=== PATIENT | female | born 1950 | race Caucasian/White ===

== ENCOUNTER 2021-08-17 06:31 | Observation (INO) ==
--- NOTE | 2021-08-15 09:29 | Anesthesiology Consultation ---
Date of Service August 15, 2021 Assessment & Plan (1) Encounter for pre-operative examination: - limb restriction: right arm. - COVID screening: Per para machine operator on 08/14/2021: Travel screen negative, no known COVID-19 positive contacts or current COVID-19 related symptoms in past 2 weeks. Surgeon arranging preop COVID testing, scheduled 08/15/2021. Awaiting results. Chart Review Chart Review: Acceptable Risk for Surgery and Patient NOT seen in Pre Admission Testing History Surgery Operation Date: 08/17/21 08:50 Proposed Procedures p Left Gluteus Medius and Minus Tendon Repair - Wilian Avendano MD Height/Weight Height: 5 ft 2 in Weight: 62.596 kg Allergies Allergy/AdvReac Type Severity Reaction Status Date / Time Penicillins Allergy Intermediate Hives Verified 08/14/21 16:46 cephalexin Allergy Unknown Unknown Unverified 08/14/21 16:46 meloxicam Allergy Unknown Unknown Unverified 08/14/21 16:46 Sulfa (Sulfonamide Allergy Unknown Unknown Unverified 08/14/21 16:46 Antibiotics) Medications Home Medications Medication Instructions Recorded Confirmed Last Taken spacer tube #1 ea 10/28/20 12/21/20 Unknown naproxen sodium 220 mg tablet 220 mg PO DAILY PRN 08/14/21 08/14/21 Unknown (Aleve) Past Medical History Medical History (Updated 08/15/21 @ 09:28 by Esther Bruno PA-C) Anxiety situational anxiety Breast cancer 2002 -- right breast Bursitis of left hip CKD (chronic kidney disease) stage 3, GFR 30-59 ml/min Hyperlipidemia no medications Lymphedema of arm hx--- right arm Osteoarthritis Past Family History Family History Brother Cancer leukemia ( from the cancer) Grandmother (Maternal) Cancer uterine Other No family history of adverse response to anesthesia Past Surgical History Surgical History History of colonoscopy S/P appendectomy S/P arthroscopy of right shoulder S/P lumpectomy, right breast with lymph node removal Social History Smoking Status: Former smoker Do You Dip or Chew Tobacco: No Hx Alcohol Use: Yes Alcohol type: wine alcohol intake frequency: a few times a week Hx Substance Use: No substance use type: does not use Lab Results Anesthesia Preop Results Results Anesthesia Widget: WBC 8.62 K/uL (4.8-10.8) 08/08/21 Hgb 13.3 g/dL (12.0-16.0) 08/08/21 Hct 40.9 % (37-47) 08/08/21 Plt 238 K/uL (130-400) 08/08/21 Na 137 mmol/L (136-145) 08/08/21 K 4.0 mmol/L (3.5-5.1) 08/08/21 Cl 103 mmol/L (98-107) 08/08/21 CO2 26 mmol/L (21-32) 08/08/21 BUN 20 mg/dl (6-23) 08/08/21 Creat 0.97 mg/dl (0.6-1.2) 08/08/21 Glucose Level 79 mg/dl (70-99(Fasting)) 08/08/21 Urine Color Yellow 08/08/21 Urine Appearance Clear (Clear) 08/08/21 Urine pH 5.0 (4.5-7.5) 08/08/21 Urine Specific [place] 1.013 (1.000-1.030) 08/08/21 Urine Protein Negative (Negative) 08/08/21 Urine Glucose (UA) Negative (Negative) 08/08/21 Urine Ketones Trace (Negative) H 08/08/21 Urine Blood 1+ (Negative) H 08/08/21 Urine Nitrite Negative (Negative) 08/08/21 Urine Bilirubin Negative (Negative) 08/08/21 Urine Urobilinogen Negative (Negative) 08/08/21 Urine Leukocyte Esterase Trace (Negative) H 08/08/21 Urine WBC (Auto) 1-5 /hpf (0-5) 08/08/21 Urine RBC (Auto) 10-30 /hpf (0-4) H 08/08/21 Urine Hyaline Casts (Auto) 0 /lpf (0-5) 08/08/21 Urine Epithelial Cells (Auto) 10-20 /lpf (0-5) H 08/08/21 Urine Bacteria (Auto) Negative (Negative) 08/08/21 Testing Electrocardiogram Date: 08/08/21 NSR with sinus arrhythmia, rate 69 bpm Chest X-Ray Date: 12/12/20 * 1 view* Multiple surgical clips right breast and axilla No acute chest findings Stress Test Date: 12/06/20 Exercise METS 6 MPHR 95% Normal without resting LV wall motion abnormalities or inducible ischemia EF 59% Grade I diastolic dysfunction
[~2021-08-17 06:31] MED LIST: CLINDAMYCIN 900 MG in DEXTROSE 5% 50 ML IV SCH; LR 15ML/HR IV SCH
[2021-08-17] MEDS ORDERED: LIDOCAINE 2% 2 ML VIAL/AMP(20MG/ML) INFIL ONE (08:01)
[2021-08-17] MEDS ORDERED: DEXAMETHASONE SOD INJ 4 MG/ML VIAL ONE (08:01)
[2021-08-17] MEDS ORDERED: ONDANSETRON INJ 2 MG/ML 2 ML VIAL ONE (08:01)
[2021-08-17] MEDS ORDERED: MIDAZOLAM HCL 1 MG/ML 2ML VIAL ONE (08:01)
[2021-08-17] MEDS ORDERED: PROPOFOL IV EMULSION 10 MG/ML 20 ML VIAL IV ONE (08:01)
--- NOTE | 2021-08-17 08:44 | History & Physical Bridge Note ---
Date of Service August 17, 2021 History & Physical Bridge Note I have examined the patient, reviewed the History & Physical and in the interval since the performance of the History & Physical I have noted the following changes of clinical significance: no changes noted
[2021-08-17] MEDS ORDERED: fentaNYL citrate 100 MCG/2 ML VIAL ONE (08:49)
[2021-08-17] MEDS ORDERED: BUPIVACAINE 0.5 % 5 MG/1 ML MPF 30ML VIAL ONE (09:16)
[2021-08-17] MEDS ORDERED: EPINEPHrine INJ 1 MG/ML AMP ONE (09:16)
[2021-08-17] MEDS ORDERED: HYDROmorphone INJ 2 MG/ML SYR/VIAL ONE (09:35)
[2021-08-17] MEDS ORDERED: LABETALOL HCL IV 5 MG/ML 20ML IV ONE (09:41)
[2021-08-17] MEDS ORDERED: ACETAMINOPHEN 1000 MG/100 ML IV IV ONE (09:43)
[2021-08-17] MEDS ORDERED: TRANEXAMIC ACID / 0.7% NACL 1000MG/100ML BAG IV ONE (09:43)
[2021-08-17] MEDS ORDERED: TRANEXAMIC ACID 100 MG/ML 10 ML VIAL IV ONE ×2 (09:58→10:26)
[2021-08-17] MEDS ORDERED: GLYCOPYRROLATE 0.2 MG/ML VIAL ONE (10:27)
[2021-08-17] MEDS ORDERED: NEOSTIGMINE METHYLSULFATE 1 MG/ML 10ML VIAL ONE (10:27)
[2021-08-17] MEDS ORDERED: ePHEDrine sulfate 50 MG/ML AMP ONE (10:34)
[2021-08-17] MEDS ORDERED: ALUMINUM/MAGNESIUM SUSP 30 ML UDC PO PRN (10:56)
[2021-08-17] MEDS ORDERED: NALOXONE HCL 0.4 MG/1 ML VIAL/CARP IV PRN (10:56)
[2021-08-17] MEDS ORDERED: MAGNESIUM HYDROXIDE SUSP 30 ML UDC PO PRN (10:56)
[2021-08-17] MEDS ORDERED: bisacodyL 10 MG SUPP PR PRN (10:56)
[2021-08-17] MEDS ORDERED: ONDANSETRON INJ 2 MG/ML 2 ML VIAL IV PRN (10:56)
[2021-08-17] MEDS ORDERED: diphenhydrAMINE 50 MG/ML VIAL IV PRN (10:56)
--- NOTE | 2021-08-17 10:56 | Operative Report ---
Post Operative Report Pre & Post Diagnosis Operation Date: 08/17/21 08:50 Pre-Op Diagnosis: Left Hip Adductor Tendon Tears of Gluteus Medius and Gluteus Minus Post-Op Diagnosis: Left Hip Adductor Tendon Tears of Gluteus Medius and Gluteus Minus I identified the patient and participated in the time-out.: Yes Procedure Operation Date: 08/17/21 08:50 Actual Procedures p Left Gluteus Medius and Minus Tendon Repair(Left) - Wilian Avendano MD Surgeon Wilian Avendano MD Factory Maintenance Technician Marcelo Perez PA-C Estimated Blood Loss 50 Findings Consistent with Post-Op Diagnosis Specimens none Description of Procedure I was present during the entire case assisting with positioning, prepping, draping, wound retraction, wound closure, and dressing application. No fellow present. Please see Dr. Avendano procedure note for specifics of the case. I attest to the content of the Intraoperative Record and any orders documented therein. Any exceptions are noted below.
--- NOTE | 2021-08-17 11:04 | Operative Report ---
Post Operative Report Pre & Post Diagnosis Operation Date: 08/17/21 08:50 Pre-Op Diagnosis: Left Hip Abductor Tendon Tears of Gluteus Medius and Gluteus Minimus Post-Op Diagnosis: Left Hip Abductor Tendon Tears of Gluteus Medius and Gluteus Minimus I identified the patient and participated in the time-out.: Yes Procedure Operation Date: 08/17/21 08:50 Actual Procedures p Left Hip Abductor Tendon Repair(Left) - Wilian Avendano MD Surgeon Wilian Avendano MD [employer] Product Manager JORDEN Perez PA-C. No resident or fellow was available to assist. Estimated Blood Loss 50 Findings Consistent with Post-Op Diagnosis Fluids 1000 cc Specimens None Anesthesia Type General Complications none Disposition Disposition: Recovery Room Indications 71-year-old female with left hip pain for 3 years. She has had multiple corticosteroid injections into her trochanteric bursa without lasting improvement. She has lateral sided hip pain with a limp. Bothers her walking with activities of daily living. Physical exam is notable for weakness in the hip abductors as well as tenderness over the trochanteric bursa and abductor tendon insertion. MRI was obtained demonstrating tears of the gluteus minimus and medius tendons off the greater trochanter. There was some fatty infiltration seen more in the minimus than the medius. The posterior lateral facet of the gluteus medius appeared to be relatively spared, however the lateral facet appeared to be completely off. I had a long discussion with her about the risks and benefits of surgery, alternatives, and expected outcomes. After reviewing all these she elected proceed with surgery. All questions were answered. Informed consent was signed. Description of Procedure Patient was identified in the preoperative holding area where her surgical site was marked. She was then brought back to the main operating room where she is placed the operative table and general anesthesia was administered. She was carefully moved in the lateral decubitus position. Axillary roll was placed. All bony prominences were padded. Perioperative antibiotics were administered. She was prepped and draped in the usual sterile fashion. Prior to incision a multidisciplinary timeout was called. All in the room were in agreement. 810 cm long incision was made centered over the tip of the greater trochanter longitudinally along the lateral aspect of the hip. I dissected down through subcutaneous tissues to level the fascia. Person elevator was used to elevate the subcutaneous fat off of the fascia to facilitate closure. We then incised through the fascia with a deep blade. Charnley bow was placed exposing the underlying hip abductor tendon tear. Small amounts of the trochanteric bursa were excised with Metzenbaum scissors. We then explored the tear. Consistent with her preoperative MRI of the lateral facet of the gluteus medius tendon was completely torn hanging on by only a thread of not healthy tissue. Essentially the anterior two thirds of the gluteus medius tendon were completely torn off. We dissected along the anterior margin of the gluteus medius and placed an [facility] retractor underneath this to elevate the gluteus medius from anterior to posterior exposing the lateral facet. There were some degenerative appearing fibers of the gluteus minimus that were still attached and these were left in place. The bald area appeared to be somewhat enlarged compared to what would typically be expected. I then debrided the lateral facet as well as the contiguous bald area with a rongeur followed by a curette and then a rasp to expose healthy bleeding bone. I also gently use a rasp on the undersurface of the tendon to stimulate healing response. Once this was complete 3 Arthrex 4.5 mm peek corkscrew anchors were opened up. 2 of these were placed in the lateral facet proximally and a third 1 was placed into the bald facet puncturing through the intact gluteus medius tendon. 1 strand of each of the 2 sutures from the anchor through the bald area was then brought out from underneath the tendon and passed from deep to superficial through the tendon so that 2 horizontal mattress sutures were placed. Next the 4 sutures from each of the other 2 anchors were then passed in horizontal mattress fashion through the medial aspect of the tendon. This was for a planned double row repair. Once the sutures were all passed they were tied down from anterior to posterior. Excellent fixation was obtained. I then plan for 2 lateral row anchors. 2 sutures from each of the lateral facet anchors were crisscrossed. 2 of the sutures coming from the bald area anchor were tied to 1 another for additional fixation. The other 2 anchors were then brought to the more proximal lateral anchor so that 6 sutures were passing through this swivel lock anchor. We then drilled for the lateral swivel lock anchors. First 1 was placed slightly more distally whereas a second 1 was placed more proximally. Excellent fixation was obtained. At this point the hip was brought through a full range of motion. There was no undue tension on the repair. Excellent coverage of the bony footprint had been obtained. The wound was then irrigated out with copious amounts of normal saline. The fascia was closed with a running looped #1 PDS suture. 30 cc of half percent Marcaine was injected in the subcutaneous tissues for postoperative pain control. Subcutaneous layer was then closed with a running #1 PDS. Deep dermal layer was closed with a running 2-0 Vicryl. Skin was closed with a zip line and Dermabond. Sterile dressing was applied. Patient was then rolled supine extubated and transferred to recovery room in stable condition. Postoperative course: Patient be admitted overnight to the hospital for pain control and physical therapy. She will need to maintain nonweightbearing on this operative left hip for a total of 6 weeks. She can begin immediate passive and active assist range of motion. She will avoid lateral straight leg raises for 4 weeks. Aspirin for DVT prophylaxis. I attest to the content of the Intraoperative Record and any orders documented therein. Any exceptions are noted below.
[2021-08-17] MEDS ORDERED: NO NSAIDS SCH (11:15)
--- NOTE | 2021-08-17 11:47 | Anesthesiology Progress Note ---
Date of Service August 17, 2021 Anesthesia Post Procedure Vital Signs Vital Signs: Temp Pulse Pulse Resp BP Pulse Ox 08/17/21 11:30 82 16 142/84 H 97 08/17/21 11:20 83 16 127/75 96 08/17/21 11:10 79 16 109/72 92 08/17/21 11:00 36.2 C L 89 16 129/94 94 08/17/21 06:59 37 C 71 20 131/102 H 98 Transfer of Care Handoff Completed per policy Notes Mental Status: alert / awake / arousable Patient Amnestic to Procedure: Yes Nausea / Vomiting: adequately controlled Pain: adequately controlled Airway Patency, RR, SpO2: stable & adequate BP & HR: stable & adequate Hydration State: stable & adequate Anesthetic Complications: no major complications apparent
[2021-08-17] MEDS: SODIUM CHLORIDE 0.9% 1000ML 1,000 ML IV SCH (14:50)
[2021-08-17] MEDS: ACETAMINOPHEN 500 MG TAB PO SCH ×2 (14:51→20:54)
[2021-08-17] MEDS: oxyCODONE HCL IR 5 MG TAB (IMMEDIATE RELEASE) PO PRN ×3 (14:51→21:27)
[2021-08-17] MEDS: CLINDAMYCIN 600 MG in DEXTROSE 5% 50 ML IV SCH (16:36)
[2021-08-17] MEDS ORDERED: TRANEXAMIC ACID / 0.7% NACL 1,000 MG/100 ML BAG IV SCH (17:15)
[2021-08-17] MEDS: DOCUSATE SODIUM 100 MG CAP PO SCH (20:54)
[2021-08-17] MEDS ORDERED: SENNA 8.6 MG TAB PO SCH (21:00)
[2021-08-17] MEDS: METOCLOPRAMIDE HCL INJ 5 MG/ML 2 ML VIAL IV PRN (21:28)
[2021-08-18] MEDS: CLINDAMYCIN 600 MG in DEXTROSE 5% 50 ML IV SCH (00:03)
[2021-08-18] MEDS: SODIUM CHLORIDE 0.9% 1000ML 1,000 ML IV SCH (02:11)
[2021-08-18] MEDS: oxyCODONE HCL IR 5 MG TAB (IMMEDIATE RELEASE) PO PRN ×3 (03:54→14:10)
[2021-08-18] MEDS: METOCLOPRAMIDE HCL INJ 5 MG/ML 2 ML VIAL IV PRN (03:55)
[2021-08-18] MEDS: ACETAMINOPHEN 500 MG TAB PO SCH ×2 (05:39→14:10)
[2021-08-18 07:57] LABS: Basophils # (auto) 0.01 K/uL (0-0.2); Basophils % (auto) 0.1 %; Hematocrit (blood only) 38.7 % (37-47); Hemoglobin 12.6 g/dL (12.0-16.0); Immature Granulocytes # (auto) 0.03 K/uL (0.00-0.02); Immature Granulocytes % (auto) 0.3 %; Lymphocytes # (auto) 1.15 K/uL (1.2-3.4); Lymphocytes % (auto) 9.7 %; Mean Corpuscular Hemoglobin 29.2 pg (25-34); Mean Corpuscular Hgb Conc 32.6 g/dL (32-36); Mean Corpuscular Volume 89.8 fL (80-100); Mean Platelet Volume 10.9 fL (7.4-10.4); Monocytes # (auto) 0.79 K/uL (0.11-0.59); Monocytes % (auto) 6.6 %; Neutrophils # (auto) 9.91 K/uL (1.4-6.5); Neutrophils % (auto) 83.3 %; Platelet Count 216 K/uL (130-400); RDW Coefficient of Variation 13.5 % (11.5-14.5); RDW Standard Deviation 44.8 fL (36.4-46.3); Red Blood Count 4.31 M/uL (4.2-5.4); White Blood Count 11.89 K/uL (4.8-10.8)
[2021-08-18] MEDS ORDERED: dexAMETHasone 4 MG TAB PO SCH (08:00)
[2021-08-18 08:29] LABS: BUN Creatinine Ratio 15.9 (10-20); Calcium 9.1 mg/dl (8.5-10.1); Creatinine Clr Calc Pharmacy 57.3 ml/min; Est GFR (African American) 84.6 ml/min; Potassium 4.4 mmol/L (3.5-5.1)
[2021-08-18] MEDS ORDERED: MULTIVITAMIN TAB PO SCH (09:00)
[2021-08-18] MEDS ORDERED: ASPIRIN 81 MG ECTAB PO SCH (09:00)
[2021-08-18] MEDS: DOCUSATE SODIUM 100 MG CAP PO SCH (09:15)
--- NOTE | 2021-08-18 09:35 | Orthopedic Progress Note ---
Date of Service August 18, 2021 Assessment & Plan (1) Tear of gluteus medius tendon: Plan: Patient will be nonweightbearing on the left lower extremity for the next 6 weeks using a walker as an ambulatory assistive device. She will avoid left lower extremity abduction and She will be on aspirin for DVT prophylaxis and using RAYRAY stockings for the next 2 weeks. Pain control with p.o. pain medication Ice with easy wrap Patient will meet with case management later this morning to discuss in-home physical therapy for the first 2 weeks postoperatively. Plan on discharge home later today after a.m. PT/OT. Follow-up with [facility] orthopedics previously scheduled With questions contact our clinic at [phone]. (2) Tear of gluteus minimus tendon: Admission and Anticipated Discharge Date Admission Date: August 17, 2021 Subjective This 71-year-old female seen today. She is day 1 status post left gluteus minimus and medius tendon repair. She states that her pain is well controlled with p.o. pain medication she was given. She states she has been able to get out of bed and use the bedside commode without difficulty. Currently she denies any chest pain, shortness of breath, fever, chills, sweats, lethargy, numbness or tingling in her left lower extremity. She also denies nausea, vomiting or difficulty voiding. Review of Systems Review of Systems: All systems reviewed & are unremarkable except as noted in Subjective Physical Exam Physical Exam: Left hip: Outer dressing was removed from the patient's left hip. Silverlon is clean dry and intact. Patient does have some tenderness to palpation circumferentially around the dressing. She is unable to perform an active straight leg raise test, however she can tolerate active assisted elevation of the left lower extremity with the aid of her right. She is able to actively dorsi and plantarflex her foot without difficulty. Knee range of motion from 0 to 90 degrees causes no pain. Logroll test is negative. Passive straight leg raise test causes no pain. Quad strength is 2 out of 5. Patient is neurovascularly intact in the left lower extremity. Results & Data ([facility]) Vital Signs (Past 12 Hours) Vital Signs Temp Pulse Pulse Resp BP Pulse Ox 08/18/21 07:36 36.6 C 59 L 20 111/65 95 08/18/21 07:25 36.6 C 59 L 20 111/65 95 08/18/21 03:38 36.5 C 75 16 110/64 96 08/17/21 22:23 36.5 C 96 H 15 99/61 L 97 Diagnostic Findings Laboratory Results WBC 11.89 K/uL (4.8-10.8) H 08/18/21 07:23 RBC 4.31 M/uL (4.2-5.4) 08/18/21 07:23 Hgb 12.6 g/dL (12.0-16.0) 08/18/21 07:23 Hct 38.7 % (37-47) 08/18/21 07: MCV 89.8 fL (80-100) 08/18/21 07: MCH 29.2 pg (25-34) 08/18/21 07: MCHC 32.6 g/dL (32-36) 08/18/21 07: RDW Std Deviation 44.8 fL (36.4-46.3) 08/18/21 07: RDW Coeff of John 13.5 % (11.5-14.5) 08/18/21 07: Plt Count 216 K/uL (130-400) 08/18/21 07:23 MPV 10.9 fL (7.4-10.4) H 08/18/21 07:23 Immature Gran % (Auto) 0.3 % 08/18/21 07: Neut % (Auto) 83.3 % 08/18/21 07:23 Lymph % (Auto) 9.7 % 08/18/21 07:23 [place] % (Auto) 6.6 % 08/18/21 07: Eos % (Auto) 0.0 % 08/18/21 07:23 Baso % (Auto) 0.1 % 08/18/21 07:23 Neut # (Auto) 9.91 K/uL (1.4-6.5) H 08/18/21 07:23 Lymph # (Auto) 1.15 K/uL (1.2-3.4) L 08/18/21 07:23 [place] # (Auto) 0.79 K/uL (0.11-0.59) H 08/18/21 07:23 Eos # (Auto) 0.00 K/uL (0-0.5) 08/18/21 07:23 Baso # (Auto) 0.01 K/uL (0-0.2) 08/18/21 07:23 Immature Gran # (Auto) 0.03 K/uL (0.00-0.02) H 08/18/21 07:23 Sodium 137 mmol/L (136-145) 08/18/21 07:23 Potassium 4.4 mmol/L (3.5-5.1) 08/18/21 07: Chloride 105 mmol/L (98-107) 08/18/21 07:23 Carbon Dioxide 26 mmol/L (21-32) 08/18/21 07:23 Anion Gap 6 (3-11) 08/18/21 07:23 BUN 13 mg/dl (6-23) 08/18/21 07: Creatinine 0.82 mg/dl (0.6-1.2) 08/18/21 07:23 Est Cr Clr Drug Dosing 57.3 ml/min 08/18/21 07:23 Est GFR ( Amer) 84.6 ml/min 08/18/21 07:23 Est GFR (Non-Af Amer) 73.0 ml/min 08/18/21 07:23 BUN/Creatinine Ratio 15.9 (10-20) 08/18/21 07:23 Glucose 107 mg/dl (70-99(Fasting)) H 08/18/21 07:23 Calcium 9.1 mg/dl (8.5-10.1) 08/18/21 07:23 SARS-CoV-2, RNA, NAAT NEGATIVE (NEGATIVE) 08/17/21 07:00
--- NOTE | 2021-08-18 09:51 | Discharge Summary ---
Date of Service August 18, 2021 Admission HPI Per Admitting Provider HISTORY OF PRESENT ILLNESS: This 71-year-old female presents today for her preoperative history and physical. She is scheduled to undergo a left gluteus medius and gluteus minimus tendon repairs with possible allograft augmentation on 08/17/2021. The patient has had pain and weakness for the last 3 years. Symptoms started in 2019 without any specific trauma. She notes an exacerbation last year when she slipped, and her leg slid forward. She denies any known falls. She has been treated with extensive corticosteroid injections as well as OTC medications without lasting improvement. She is ambulatory with a limp. She states it hurts to walk. It is affecting her ADLs. No numbness or tingling. Pain is worse at nighttime when she is lying down. Pain radiates down to her knee. She elects to proceed with surgical intervention in hopes of improving her pain and function. Admission Exam Per Admitting Provider PHYSICAL EXAMINATION: Vitals: Height 162.6 cm, weight 66 kilograms, BMI 25. Temperature 36.6, BP 110/86, pulse 88, O2 sat 96% on room air. General: Well- developed, well-nourished, elderly white female in no acute distress. Sitting in a chair. Alert and oriented. Skin: Warm and dry with good turgor. No rashes or lesions. No ecchymosis. HEENT: Normocephalic, atraumatic. Eyes: PERRLA, EOMI. Nares and oropharynx exams deferred due to COVID precautions. Heart: RRR. No MGR. Lungs: Clear to auscultation bilaterally. No crackles, rhonchi or wheezing. Good air movement. Abdomen: Mildly obese. Bowel sounds present x4, soft, nontender. No organomegaly. No masses. Musculoskeletal: Left hip exam reveals no obvious asymmetry or deformity. She has supple motion of the hip with flexion to greater than 120 degrees. External rotation of 50 degrees and internal rotation of greater than 25 degrees. No pain with impingement testing. Normal log roll test. There is tenderness to palpation over the trochanteric bursa. She has a notable limp with ambulation. Strength is 5/5 for resisted hip flexion and adduction. It is 3+/5 for resisted adduction. Neurologic: Gross sensation is intact across both lower extremities by soft touch. Peripheral pulses are 2+. Principal Diagnosis Left gluteus minimus and medius tendon tears. Discharge Exam Left hip: Outer dressing was removed from the patient's left hip. Silverlon is clean dry and intact. Patient does have some tenderness to palpation circumferentially around the dressing. She is unable to perform an active straight leg raise test, however she can tolerate active assisted elevation of the left lower extremity with the aid of her right. She is able to actively dorsi and plantarflex her foot without difficulty. Knee range of motion from 0 to 90 degrees causes no pain. Logroll test is negative. Passive straight leg raise test causes no pain. Quad strength is 2 out of 5. Patient is neurovascularly intact in the left lower extremity. Discharge Data Allergies Allergy/AdvReac Type Severity Reaction Status Date / Time Penicillins Allergy Intermediate Hives Verified 08/17/21 06:54 cephalexin Allergy Unknown Unknown Verified 08/17/21 07:38 meloxicam Allergy Unknown Unknown Verified 08/17/21 07:38 Sulfa (Sulfonamide Allergy Unknown Unknown Verified 08/17/21 07:38 Antibiotics) Procedures Performed Operation Date: 08/17/21 08:50 Actual Procedures p Left Gluteus Medius and Minus Tendon Repair(Left) - Wilian Avendano MD Hospital Course (1) Tear of gluteus medius tendon: Patient had an uneventful overnight stay following her surgery. She states that her pain is well controlled with p.o. pain medication she was given this morning. She is little apprehensive to be discharged home today but states she is planning on discussing some in-home physical therapy with case management this morning. Patient will be nonweightbearing on the left lower extremity for the next 6 weeks using a walker as an ambulatory assistive device. She will avoid left lower extremity abduction and She will be on aspirin for DVT prophylaxis and using RAYRAY stockings for the next 2 weeks. Pain control with p.o. pain medication Ice with easy wrap Patient will meet with case management later this morning to discuss in-home physical therapy for the first 2 weeks postoperatively. Plan on discharge home later today after a.m. PT/OT. Follow-up with [facility] orthopedics previously scheduled With questions contact our clinic at [phone]. (2) Tear of gluteus minimus tendon: Total Time Total Time Spent Total Time Spent (In Minutes): 20 mins Discharge Plan Discharge Items Patient Disposition: Home - Home Health Services Reason For Visit: Strainof Muscle, Facia and Tendon of Unspecified H Discharge Diagnosis: Left gluteus medius and minimus tendon tears Activity: As commented below Lifting: None Bathing: Keep incision dry Bathing Comment: May shower tomorrow Sexual Activity: Wait until after follow-up appointment Exercise/Sports: Wait until after follow-up appointment Driving/Machine Use: No driving until cleared by solar project coordination specialist Weightbearing: Left non-weightbearing Weightbearing Comment: with walker assistance Non-emergency contact: Surgeon Call non-emergency contact if: you have any medication questions, your pain is not controlled, your temperature is above 101.5, your wound has increased drainage and your wound pain has increased Follow-up/Referrals: Forest Walter DO [Primary Care Provider] - Diet: Regular Addtl Attending Provider Instructions: Post-operative Instructions Dear Patient and Family/Friends, Before you are discharged from the hospital, it is important to know what to expect when you get home after surgery. To that end, we have created this sheet of discharge instructions which covers many commonly asked questions. Make sure you go through this sheet in its entirety with your nurse before you are discharged. Please note that we will go over the specifics of your surgery and recovery when you return for your first post-operative visit. Sincerely, Dr. Avendano Medications 1. Oxycodone 5 mg: take 1-2 tabs every 4-6 hours as needed for pain control. This will be sent to your pharmacy. 2. Aspirin 81 mg: take 1 tab twice daily for the next 30 days for blood clot prevention. Please purchase. 3. Extra Strength Tylenol 500 mg: take 2 tab every 6-8 hours as needed for pain relief. Please purchase. Pain Expect to be in a fair amount of pain after surgery. Remember, our goal is not to eliminate your pain, but to make it tolerable. It is a good idea to stay ahead of your pain by taking the medications you were prescribed once you get home. Typically, the pain starts improving 3-7 days after surgery. You should start weaning off the narcotic pain medication (oxycodone, hydrocodone, hydromorphone, morphine) as soon as your pain improves. Please call our office if your pain is not adequately controlled. Ice Ice your operative site at least 5 times a day for 15-30 minutes at a time. Make sure you have a thin cloth between the ice or cooling unit and your skin to prevent valadez bite. This is especially important if you received a nerve block. Continue icing your operative site for the first 5-7 days after surgery, then as needed. Diet/Nausea/Vomiting Start by drinking clear liquids and eating crackers. If you can tolerate this, then you may resume your normal diet. If you feel nauseated or vomit, take Zofran/ondansetron (if prescribed). Please call our office if you have intractable nausea or vomiting, or, if after hours, you may go to the Emergency Room for help. Constipation Constipation is a common side effect of narcotic pain medication. If you have not had a bowel movement within 2 days after surgery, we recommend purchasing an over the counter laxative such as Milk of Magnesia, Dulcolax, or Miralax from a local pharmacy, and taking it as instructed. Call our clinic if any questions. Slings and Braces If you were placed in a sling or brace, it must be worn at all times, including sleep. You may remove your sling or brace for physical therapy, home exercises, and showering. The length of time you will be in your brace and range of motion restrictions depends on what surgery you had; these details will be reviewed at your first post-operative appointment. Nerve block The anesthesia team sometimes places a nerve block to help with post-operative pain control. This results in significant numbness and inability to move the extremity. The nerve block usually wears off in 8-12 hours, but sometimes can last up to 24 hours. Please call our office if you are still unable to move your extremity after 24 hours, unless you received a pain pump to take home. Nerve blocks typically wear off quickly, so start taking pain medication as soon as you start feeling soreness near your surgical site. Weight bearing and Range of Motion. Do not bear any weight through your operative extremity immediately after surgery. If you had upper extremity surgery, do not lift anything with that arm. If you are in a knee brace, keep it locked in place until your follow-up. We will discuss your weight bearing, range of motion, and lifting restrictions in detail at your first post-operative appointment. Continuous Passive Motion (CPM) Machine If you were prescribed a CPM machine, it will start after your first post- operative appointment, at which time we will give you instructions on the range of motion settings and duration of treatment Physical therapy You will be given a prescription for physical therapy or occupational therapy at your first post-operative appointment. Typically, patients start therapy within 1 week of surgery Wound care and showering We will inspect your wound at your first post-operative visit, and may do a dressing change at that time. Most patients will be in a water-proof dressing that is removed 14 days after surgery. It is normal to see some dried blood on the dressing. Do not remove your dressing, paper strips or sutures yourself unless you are given permission. Showering is allowed the day after surgery. Do not scrub or remove any dressings. The wound should not be submerged underwater (i.e. in a bathtub or pool) until 4 weeks after surgery RAYRAY stockings If you were given white stockings, these are to be worn at all times except to shower (on both legs) for the first 2 weeks after surgery. Driving You may not drive while taking narcotic pain medication or while in a cast, splint, sling or brace. You, the patient, need to make the final determination about when you are safe to drive, however, the earliest you may consider driving after surgery is below: Hand/Wrist/Elbow Surgery: 3 days Shoulder Surgery: 2 weeks Hip,/Knee/Ankle Surgery: 4 weeks Fracture repair: 6 weeks Return to Work Your return to work depends on what surgery was done and what type of work you do. Please bring any paperwork your employer needs completed to your first post-operative visit. Also, bring a description of your job duties, as this helps us to understand what risks you may face at work. Travel Avoid long distance travel (greater than 1 hour) in airplanes and cars for the first 6 weeks after surgery. If you must travel, you need to have a Doppler ultrasound done before you travel to rule out a blood clot in your legs. Follow-up You should have a follow-up appointment already scheduled 1-2 days after surgery. If not, please contact our office to make this appointment before you leave the hospital. When to call the office It is normal to have swelling and bruising in the limb that was operated on. This will improve with time. It is also normal to have fevers for the first 2 days after surgery. Reasons you should call your doctor include: Uncontrolled pain; Nausea, vomiting, or constipation that does not improve with medication; Fevers over 101.5, chills, sweats; Drainage or bleeding from the wound; Foul odor; Spreading areas of redness; Any other concerns Pending Studies at Discharge: No Stand-Alone Forms: [facility] [employer], Smoking Cessation Medications and DC Order Prescriptions: New oxycodone 5 mg tablet 5 mg PO Q4H MDD ongoing Rx Qty: 20 RF: 0 Continued (DME) spacer tube See Rx Instructions .Route .MEDSUPPLY Qty: 1 RF: 0 Discontinued naproxen sodium [Aleve] 220 mg Tablet 220 mg PO DAILY PRN (Reason: Pain) RF: 0 Discharge Orders: Discharge Order (Routine); Ordered 08/18/21 Ordered By: Horace Perez Admission Data Admit Date/Time: 08/17/21 10:59 Attending Provider: Wilian Avendano Admit Provider: Wilian Avendano Primary Care Provider: Forest Walter
== END 2021-08-18 14:30 | disposition home health service (06) ==
LOC: 3N 06:31 → ASU 06:31